=== PATIENT | female | born 1995 | race Asian ===

== ENCOUNTER 2017-01-04 16:55 | Outpatient (CLI) | payer OTHER | END 2017-01-04 17:00 | disposition short-term general hospital (02) | LOC: AMB 16:55 | DX: R10.11 Right upper quadrant pain (principal); M54.89 Other dorsalgia; Y04.2XXA Assault by strike against or bumped into by another person, initial encounter | CPT/HCPCS: A0425; A0427 ==

== ENCOUNTER 2017-01-04 17:00 | Emergency (ER) | payer OTHER ==
[~2017-01-04] VITALS: Ht 170.2 cm; Wt 45.4 kg
[2017-01-04 20:34] VITALS: BP 126/88; TEMP 98.1
== END 2017-01-04 20:35 | disposition home or self-care (01) ==
LOC: ED 17:00
DX: S09.90XA Unspecified injury of head, initial encounter (principal); M54.9 Dorsalgia, unspecified; S22.41XA Multiple fractures of ribs, right side, initial encounter for closed fracture; Y04.2XXA Assault by strike against or bumped into by another person, initial encounter
CPT/HCPCS: 36415; 84702; 96374; 99284; J1885